=== PATIENT | female | born 1995 | race Two or more races ===

== ENCOUNTER 2021-02-02 08:35 | Observation (INO) | payer MEDICAID, OTHER | END 2021-02-02 10:52 | disposition home or self-care (01) | LOC: LDRP 08:35 | PROVIDERS: ADMIT Specialist; ATTEND Specialist | DX: O48.0 Post-term pregnancy (principal); Z3A.40 40 weeks gestation of pregnancy | CPT/HCPCS: 59025; 76818; 81002; G0378 ==

== ENCOUNTER 2021-02-04 10:50 | Observation (INO) | payer MEDICAID | END 2021-02-04 11:55 | disposition home or self-care (01) | LOC: LDRP 10:50 | PROVIDERS: ADMIT Obstetrics & Gynecology; ATTEND Obstetrics & Gynecology | DX: O48.0 Post-term pregnancy (principal); O60.03 Preterm labor without delivery, third trimester; Z3A.40 40 weeks gestation of pregnancy; Z91.040 Latex allergy status; Z79.899 Other long term (current) drug therapy | CPT/HCPCS: 59025; 76818; 81002; G0378 ==

== ENCOUNTER 2021-02-06 15:02 | Observation (INO) | payer MEDICAID ==
[~2021-02-06] VITALS: Ht 157.5 cm; Wt 67.1 kg
== END 2021-02-06 17:04 | disposition home or self-care (01) ==
LOC: LDRP 15:02
PROVIDERS: ADMIT Obstetrics & Gynecology; ATTEND Obstetrics & Gynecology
DX: O48.0 Post-term pregnancy (principal); O62.9 Abnormality of forces of labor, unspecified; Z3A.40 40 weeks gestation of pregnancy; Z91.040 Latex allergy status
CPT/HCPCS: 59025; 76818; 81002; 94760; G0378

== ENCOUNTER 2021-02-07 19:35 | Observation (INO) | payer MEDICAID ==
[~2021-02-07] VITALS: Ht 160 cm; Wt 66.7 kg
== END 2021-02-07 22:18 | disposition home or self-care (01) ==
LOC: LDRP 19:35
PROVIDERS: ADMIT Obstetrics & Gynecology; ATTEND Obstetrics & Gynecology
DX: O46.93 Antepartum hemorrhage, unspecified, third trimester (principal); Z3A.40 40 weeks gestation of pregnancy; Z91.040 Latex allergy status
CPT/HCPCS: 59025; 76818; 81002; G0378

== ENCOUNTER 2021-02-09 20:02 | Observation (INO) | payer MEDICAID ==
[~2021-02-09] VITALS: Ht 160 cm; Wt 66.7 kg
== END 2021-02-10 01:45 | disposition home or self-care (01) ==
LOC: LDRP 20:02
PROVIDERS: ADMIT Specialist; ATTEND Specialist
DX: O24.419 Gestational diabetes mellitus in pregnancy, unspecified control (principal); O62.9 Abnormality of forces of labor, unspecified; Z91.040 Latex allergy status; Z3A.41 41 weeks gestation of pregnancy
CPT/HCPCS: 59025; 76818; 81002; 94760; G0378

== ENCOUNTER 2021-02-10 19:43 | Inpatient (IN) | payer MEDICAID ==
[~2021-02-10] VITALS: Ht 33 cm; Wt 0.5 kg
[2021-02-10] MEDS ORDERED: PROMETHAZINE HCL 25 MG/ML 1ML IM PRN (21:15)
[2021-02-10] MEDS ORDERED: DERMOPLAST 60ML BOTTLE TOP PRN (21:15)
[2021-02-10] MEDS ORDERED: LIDOCAINE 2%HCL (LOCAL ANESTH.) INJ 20ML MDV IJ PRN (21:15)
[2021-02-10] MEDS ORDERED: PHISODERM TOP SOLN 240ML BTL TOP PRN (21:15)
[2021-02-10] MEDS ORDERED: BUTORPHANOL TARTRATE 2 MG/1 ML VIAL IV PRN (21:15)
[2021-02-10] MEDS ORDERED: LACT. RINGERS/OXYTOCIN 20UNITS 500 ML IV ONE ×2 (21:30→22:00)
[2021-02-10] MEDS ORDERED: LACT. RINGERS/OXYTOCIN 20UNITS 1,000 ML IV SCH (21:30)
[2021-02-10] MEDS ORDERED: TERBUTALINE SULFATE 1 MG/ML 1ML VIAL SC ONE (21:30)
[2021-02-10] MEDS: miSOPROStol 50 MCG per PRE-CUT 1/2 TAB PO PRN (21:58)
[2021-02-10] MEDS: LACTATED RINGER'S 1,000 ML IV SCH (22:07)
[2021-02-10 22:17] LABS: Basophils # (auto) 0.1 10 ^3/uL (0-0.2); Basophils % (auto) 0.9 % (0.0-2.0); Eosinophils # (auto) 0.1 10 ^3/uL (0-0.8); Eosinophils % (auto) 0.7 % (0.0-7.0); Hematocrit 37.8 % (36.0-46.0); Hemoglobin 13.2 g/dL (12.2-16.2); Lymphocytes # (auto) 1.7 10 ^3/uL (0.4-5.4); Lymphocytes % (auto) 15.4 % (10.0-50.0); Mean Corpuscular Hemoglobin 32.9 pg (28.0-32.0); Mean Corpuscular Hgb Conc. 34.8 g/dL (32.0-36.0); Mean Corpuscular Volume 94.4 fL (80.0-100.0); Monocytes # (auto) 0.7 10 ^3/uL (0-1.3); Monocytes % (auto) 6.5 % (0.0-12.0); Neutrophils # (auto) 8.3 10 ^3/uL (1.6-8.6); Neutrophils % (auto) 76.5 % (37.0-80.0); Red Cell Distribution Width 13.4 % (11.8-14.3); White Blood Cell 10.8 10^3/uL (4.4-10.8)
[2021-02-10 22:43] LABS: Urine Bacteria NONE SEEN /hpf (None Seen); Urine Blood Negative /uL (Negative); Urine Mucus FEW (None Seen); Urine Specific Gravity 1.025 (1.001-1.035); Urine WBC 16 /hpf (0 - 5)
[2021-02-10 22:50] LABS: Albumin 2.8 g/dL (3.4-5.0); Calcium 8.6 mg/dL (8.5-10.1); Potassium 3.9 mmol/L (3.5-5.1)
[2021-02-10 22:51] LABS: Alcohol, Urine < 3.0 mg/dL (0-10); Amphetamine Screen, Urine NEGATIVE (NEGATIVE); Barbiturate Scree,Urine NEGATIVE (NEGATIVE); Benzodiazephine Screen, Urine NEGATIVE (NEGATIVE); Cannabinoid Screen, Urine NEGATIVE (NEGATIVE); Cocaine Screen, Urine NEGATIVE (NEGATIVE); Opiate Scree,Urine NEGATIVE (NEGATIVE); Phencyclidine Screen, Urine NEGATIVE (NEGATIVE)
[2021-02-10 22:53] LABS: Bilirubin, Total 0.4 mg/dL (0.2-1.0); Total Protein 6.7 g/dL (6.4-8.2)
[2021-02-10 22:56] LABS: INR 0.95 (0.9-1.15); Partial Thromboplastin Time 27.5 sec (23.0-31.2)
[2021-02-11] VITALS (10 sets, daily range): BP systolic 112–132; BP diastolic 49–73
[2021-02-11] MEDS ORDERED: AMPICILLIN SOD 1 GM VL ONE (00:04)
[2021-02-11] MEDS: BUTORPHANOL TARTRATE 2 MG/1 ML VIAL IV PRN ×2 (02:37→08:01)
[2021-02-11] MEDS ORDERED: PROMETHAZINE HCL 25 MG/ML 1ML IV PRN ×2 (04:30→05:15)
[2021-02-11] MEDS: WITCH HAZEL-GLYCERIN PAD TOP PRN (04:59)
[2021-02-11] MEDS: miSOPROStol 50 MCG per PRE-CUT 1/2 TAB PO PRN (08:07)
[2021-02-11] MEDS ORDERED: NALOXONE HCL 0.4 MG/ML VIAL IV ONE (09:15)
[2021-02-11] MEDS ORDERED: ePHEDrine SULFATE 50 MG/ML AMP IV ONE (09:15)
[2021-02-11] MEDS ORDERED: LACTATED RINGER'S 1,000 ML IV ONE (09:15)
[2021-02-11] MEDS ORDERED: ROPIVACAINE HCL 200 ML EPI SCH (09:15)
[2021-02-11] MEDS ORDERED: LIDOCAINE HCL 2 %PF INJ 10ML AMP IJ ONE (09:15)
[2021-02-11] MEDS ORDERED: fentaNYL CITRATE 100 MCG/2 ML VL IV ONE (09:15)
[2021-02-11] MEDS: LACTATED RINGER'S 1,000 ML IV SCH ×2 (09:28→11:34)
[2021-02-11] MEDS ORDERED: fentaNYL CITRATE 100 MCG/2 ML VL ONE ×2 (09:57→20:21)
[2021-02-11] MEDS ORDERED: CARBOPROST TROMETHAMINE 250 MCG/1ML VIAL IM ONE (15:30)
[2021-02-11] MEDS ORDERED: METHYLERGONOVINE MALEATE 0.2 MG/ML AMP IM PRN (15:30)
[2021-02-11] MEDS ORDERED: miSOPROStol 100 mcg TAB SL ONE (15:30)
[2021-02-11] MEDS ORDERED: miSOPROStol 100 mcg TAB PR ONE (15:30)
[2021-02-11] MEDS ORDERED: LACT. RINGERS/OXYTOCIN 20UNITS 0 ML IV ONE (18:58)
[2021-02-11] MEDS ORDERED: SODIUM CITR/CITRIC ACID ORAL SOLN 30 ML ONE (19:15)
[2021-02-11] MEDS ORDERED: BUPIVACAINE 0.5% P/F INJ 10 ML VIAL ONE (19:19)
[2021-02-11] MEDS ORDERED: ceFAZolin 1GM/50ML 50 ML IV ONE (19:52)
[2021-02-11] MEDS ORDERED: MORPHINE SULF(PF) 0.5MG/ML 10ML VIAL ONE (20:18)
[2021-02-11] MEDS ORDERED: MIDAZOLAM HCL 1MG/1ML-2 ML VIAL ONE (20:26)
[2021-02-11] MEDS ORDERED: GUM (CHEWING) 1 GUM CHEW CHEW ONE (21:00)
[2021-02-11] MEDS ORDERED: ONDANSETRON HCL 4 MG/2 ML VIAL IV PRN ×2 (21:00→21:15)
[2021-02-11] MEDS ORDERED: ceFAZolin 1GM/50ML 50 ML IV SCH (21:00)
[2021-02-11] MEDS ORDERED: ACETAMINOPHEN IV 1000 MG/100ML (10MG/ML) IV PRN ×2 (21:00→22:45)
[2021-02-11] MEDS ORDERED: HYDROmorphone HCL 2 MG/ML VL IV PRN ×2 (21:00→21:15)
[2021-02-11] MEDS ORDERED: diphenhdrAMINE HCL 50 MG/1 ML VL IV PRN (21:15)
[2021-02-11] MEDS ORDERED: NALOXONE HCL 0.4 MG/ML VIAL IV PRN (21:15)
[2021-02-11] MEDS ORDERED: NALBUPHINE HCL 10 MG/1ml INJECTION SUBCUT ONE (21:15)
[2021-02-11] MEDS ORDERED: DexAMETHasone SOD PHOS 10MG/1ML VIAL INJ IV PRN (21:15)
[2021-02-11] MEDS ORDERED: SODIUM CITR/CITRIC ACID ORAL SOLN 30 ML PO ONE (21:46)
[2021-02-12] VITALS (23 sets, daily range): BP systolic 105–130; BP diastolic 53–79
[2021-02-12] MEDS: LACTATED RINGER'S 1,000 ML IV SCH ×3 (04:05→14:09)
[2021-02-12] MEDS: ceFAZolin 1GM/50ML 50 ML IV SCH ×3 (04:06→21:59)
[2021-02-12 06:06] LABS: RPR Non Reactive (Non Reactive)
[2021-02-12 07:24] LABS: Basophils # (auto) 0.1 10 ^3/uL (0-0.2); Basophils % (auto) 0.3 % (0.0-2.0); Eosinophils # (auto) 0 10 ^3/uL (0-0.8); Eosinophils % (auto) 0.1 % (0.0-7.0); Hematocrit 30.9 % (36.0-46.0); Hemoglobin 10.9 g/dL (12.2-16.2); Lymphocytes # (auto) 1.9 10 ^3/uL (0.4-5.4); Lymphocytes % (auto) 10.7 % (10.0-50.0); Mean Corpuscular Hemoglobin 33.5 pg (28.0-32.0); Mean Corpuscular Hgb Conc. 35.1 g/dL (32.0-36.0); Mean Corpuscular Volume 95.2 fL (80.0-100.0); Monocytes % (auto) 5.9 % (0.0-12.0); Neutrophils # (auto) 14.6 10 ^3/uL (1.6-8.6); Red Blood Cells 3.25 10^6/uL (4.0-5.20); Red Cell Distribution Width 13.2 % (11.8-14.3); White Blood Cell 17.7 10^3/uL (4.4-10.8)
[2021-02-12] MEDS ORDERED: LACTATED RINGER'S 1,000 ML IV SCH (19:45)
[2021-02-12] MEDS ORDERED: HYDROcodone-ACET 5/325MG TAB PO PRN (19:45)
[2021-02-12] MEDS ORDERED: BISACODYL 10 MG RECT SUPP PR PRN (19:45)
[2021-02-12] MEDS ORDERED: IBUPROFEN 800 MG TAB PO PRN (19:45)
[2021-02-12] MEDS: HYDROcodone-ACET 5/325MG TAB PO PRN (20:01)
[2021-02-12] MEDS ORDERED: ACETAMINOPHEN 325 MG TAB PO PRN (21:20)
[2021-02-12] MEDS: SIMETHICONE 80 MG CHEWABLE TABLET PO SCH (22:00)
[2021-02-12] MEDS: DOCUSATE SOD 100 MG CAP PO SCH (22:00)
[2021-02-13 04:03] VITALS: BP 107/61
[2021-02-13] MEDS: SIMETHICONE 80 MG CHEWABLE TABLET PO SCH ×4 (05:35→23:02)
[2021-02-13 07:00] VITALS: BP 115/62
[2021-02-13] MEDS: DOCUSATE CALCIUM 240 MG CAP PO SCH (09:33)
[2021-02-13] MEDS: DOCUSATE SOD 100 MG CAP PO SCH ×2 (09:33→23:02)
[2021-02-13 11:00] VITALS: BP 109/62
[2021-02-13 15:00] VITALS: BP 112/63
[2021-02-13] MEDS: WITCH HAZEL-GLYCERIN PAD TOP PRN (15:09)
[2021-02-13] MEDS: HYDROcodone-ACET 5/325MG TAB PO PRN ×2 (17:05→23:01)
[2021-02-13 19:00] VITALS: BP 124/74
[2021-02-13 23:15] VITALS: BP 122/68
[2021-02-14 03:30] VITALS: BP 124/72
[2021-02-14] MEDS: SIMETHICONE 80 MG CHEWABLE TABLET PO SCH (05:52)
[2021-02-14 06:30] VITALS: BP 108/61
[2021-02-14] MEDS ORDERED: HYDR-4902 PO (09:10)
[2021-02-14] MEDS: DOCUSATE SOD 100 MG CAP PO SCH (10:03)
[2021-02-14] MEDS: DOCUSATE CALCIUM 240 MG CAP PO SCH (10:03)
[2021-02-14 10:54] VITALS: BP 118/74
== END 2021-02-14 13:30 | disposition home or self-care (01) | DRG 540 ==
LOC: LDRP 19:43
PROVIDERS: ADMIT Specialist; ATTEND Specialist
PROC: 3E0P7VZ Introduction of Hormone into Female Reproductive, Via Natural or Artificial Opening (ICD-10-PCS; 2021-02-10)
PROC: 10D00Z1 Extraction of Products of Conception, Low, Open Approach (ICD-10-PCS; principal; 2021-02-11 19:36)
DX: O48.0 Post-term pregnancy (principal); R71.0 Precipitous drop in hematocrit; O66.5 Attempted application of vacuum extractor and forceps; O69.81X0 Labor and delivery complicated by cord around neck, without compression, not applicable or unspecified; O66.9 Obstructed labor, unspecified; Z20.822 Contact with and (suspected) exposure to COVID-19; Z37.0 Single live birth; Z3A.41 41 weeks gestation of pregnancy
CPT/HCPCS: 36415; 59025; 80053; 80307; 81001; 85025; 85049; 85610; 85730; 86592; 86850; 86900; 86901; 87426; 94760; 94762; 96360; 96361; 96365; 96366; 96372; 96374; 96375; G0378; J0131; J0690; J2250; J2590; J3490

== ENCOUNTER 2024-03-09 04:49 | Inpatient (IN) | payer MEDICAID ==
[2024-03-08 11:28] LABS: Basophils # (auto) 0 10 ^3/uL (0-0.2); Basophils % (auto) 0.2 % (0.0-2.0); Eosinophils # (auto) 0.1 10 ^3/uL (0-0.8); Eosinophils % (auto) 0.6 % (0.0-7.0); Hemoglobin 10.2 g/dL (12.2-16.2); Lymphocytes # (auto) 1.9 10 ^3/uL (0.4-5.4); Lymphocytes % (auto) 23.6 % (10.0-50.0); Mean Corpuscular Hemoglobin 27.3 pg (28.0-32.0); Mean Corpuscular Hgb Conc. 33.1 g/dL (32.0-36.0); Mean Corpuscular Volume 82.6 fL (80.0-100.0); Monocytes # (auto) 0.5 10 ^3/uL (0-1.3); Neutrophils # (auto) 5.5 10 ^3/uL (1.6-8.6); Neutrophils % (auto) 69.6 % (37.0-80.0); Red Blood Cells 3.75 10^6/uL (4.0-5.20); Red Cell Distribution Width 15.1 % (11.8-14.3); White Blood Cell 7.9 10^3/uL (4.4-10.8)
[2024-03-08 11:37] LABS: Urine Bacteria FEW /hpf (None Seen); Urine Blood Negative /uL (Negative); Urine Clarity Turbid (Clear); Urine Color Yellow (Yellow); Urine Mucus FEW (None Seen); Urine Protein, UAD TRACE (Negative); Urine Specific Gravity 1.024 (1.001-1.035); Urine Urobilinogen Normal (Negative); Urine WBC 18 /hpf (0 - 5); Urine pH 5.5 (5.0-9.0)
[2024-03-08 11:43] LABS: Alanine Aminotransferase 12 U/L (7-40); Alkaline Phosphatase 178 U/L (46-116); Anion Gap 10 (5-15); Calcium 9.3 mg/dL (8.7-10.4); Carbon Dioxide 22 mmol/L (20-30); Chloride 105 mmol/L (98-107); Glucose 69 mg/dL (74-106); Potassium 3.8 mmol/L (3.5-5.1); Sodium 137 mmol/L (136-145)
[2024-03-08 11:44] LABS: Albumin 3.9 g/dL (3.2-4.8); Aspartate Aminotransferase 22 U/L (13-40); BUN/Creatinine Ratio 12.2 (10.0-20.0); Bilirubin, Total 0.8 mg/dL (0.2-1.0); Blood Urea Nitrogen 5 mg/dL (9-23); Total Protein 6.5 g/dL (5.7-8.2)
[2024-03-08 11:46] LABS: Partial Thromboplastin Time 27.2 SEC (24.5-34.5); Prothrombin Time 10.6 sec (9.3-11.8)
[2024-03-08 11:48] LABS: Amphetamine Screen, Urine Neg (NEGATIVE); Barbiturate Scree,Urine Neg (NEGATIVE); Benzodiazephine Screen, Urine Neg (NEGATIVE); Cocaine Screen, Urine Neg (NEGATIVE)
[2024-03-08 11:49] LABS: Cannabinoid Screen, Urine Neg (NEGATIVE); Opiate Scree,Urine Neg (NEGATIVE); Phencyclidine Screen, Urine Neg (NEGATIVE)
[~2024-03-09] VITALS: Ht 167.6 cm; Wt 59.4 kg
[2024-03-09] VITALS (17 sets, daily range): BP systolic 98–134; BP diastolic 55–76; PULSE 57–96; RESP 16–18; TEMP 97.8–99.3; O2SAT 93–99
[2024-03-09] MEDS ORDERED: oxyTOCIN 10 UNIT/ML 10ML VIAL ONE (06:57)
[2024-03-09] MEDS ORDERED: MORPHINE SULF PF 5 MG/10 ML VIAL ONE (06:57)
[2024-03-09 07:06] LABS: RPR Non Reactive (Non Reactive)
[2024-03-09] MEDS: ceFAZolin 2 GM/D5W50ml 50 ML IV ONE (07:38)
[2024-03-09] MEDS ORDERED: ePHEDrine SULFATE 50 MG/ML AMP ONE (07:56)
[2024-03-09] MEDS ORDERED: ONDANSETRON HCL 4 MG/2 ML VIAL ONE (08:02)
[2024-03-09] MEDS ORDERED: HYDROmorphone HCL 2 MG/ML VL/or syr IV PRN ×2 (09:00)
[2024-03-09] MEDS ORDERED: ONDANSETRON HCL 4 MG/2 ML VIAL IV PRN ×2 (09:00)
[2024-03-09] MEDS ORDERED: MEPERIDINE HCL (25 MG/ML) 1ML VIAL IV PRN (09:00)
[2024-03-09] MEDS ORDERED: NALOXONE HCL 0.4 MG/ML VIAL IV PRN (09:00)
[2024-03-09] MEDS ORDERED: DexAMETHasone SOD PHOS 10MG/1ML VIAL INJ IV PRN (09:00)
[2024-03-09] MEDS: diphenhdrAMINE HCL 50 MG/1 ML VL IV PRN (11:19)
[2024-03-09] MEDS: ACETAMINOPHEN IV 1000 MG/100ML (10MG/ML) IV PRN (11:20)
[2024-03-09] MEDS: ceFAZolin 1GM/50ML 50 ML IV SCH (15:33)
[2024-03-09] MEDS: LACTATED RINGER'S 1,000 ML IV SCH (15:40)
[2024-03-09 15:48] LABS: Basophils # (auto) 0 10 ^3/uL (0-0.2); Basophils % (auto) 0.1 % (0.0-2.0); Eosinophils # (auto) 0 10 ^3/uL (0-0.8); Eosinophils % (auto) 0.1 % (0.0-7.0); Hemoglobin 8.5 g/dL (12.2-16.2); Mean Corpuscular Hemoglobin 26.4 pg (28.0-32.0); Neutrophils # (auto) 13.1 10 ^3/uL (1.6-8.6)
[2024-03-09 15:50] LABS: Hematocrit 26.6 % (36.0-46.0); Lymphocytes # (auto) 1.5 10 ^3/uL (0.4-5.4); Lymphocytes % (auto) 9.9 % (10.0-50.0); Mean Corpuscular Hgb Conc. 32.1 g/dL (32.0-36.0); Mean Corpuscular Volume 82.2 fL (80.0-100.0); Monocytes # (auto) 0.8 10 ^3/uL (0-1.3); Monocytes % (auto) 5.1 % (0.0-12.0); Neutrophils % (auto) 84.8 % (37.0-80.0); Red Blood Cells 3.23 10^6/uL (4.0-5.20); Red Cell Distribution Width 14.8 % (11.8-14.3); White Blood Cell 15.4 10^3/uL (4.4-10.8)
[2024-03-09] MEDS: FERROUS SULFATE 325mg EC TAB PO SCH (22:53)
[2024-03-10] VITALS (13 sets, daily range): BP systolic 108–133; BP diastolic 56–90; PULSE 79–100; RESP 16–20; TEMP 98.5–99.1; O2SAT 95–100
[2024-03-10] MEDS: HYDROmorphone HCL 2 MG/ML VL/or syr IV PRN (00:38)
[2024-03-10] MEDS: ONDANSETRON HCL 4 MG/2 ML VIAL IV ONE (06:31)
[2024-03-10] MEDS: NALBUPHINE HCL 10 MG/1ml INJECTION SUBCUT ONE (06:32)
[2024-03-10] MEDS: LACTATED RINGER'S 1,000 ML IV ONE (06:33)
[2024-03-10] MEDS: HYDROcodone-ACET 5/325MG TAB PO PRN (07:29)
[2024-03-10] MEDS ORDERED: HYDROcodone-ACET 5/325MG TAB PO PRN (07:30)
[2024-03-10] MEDS: DOCUSATE CALCIUM 240 MG CAP PO SCH (10:00)
[2024-03-10] MEDS: DOCUSATE SOD 100 MG CAP PO SCH (10:25)
[2024-03-10] MEDS: SIMETHICONE 80 MG CHEWABLE TABLET PO SCH (11:44)
[2024-03-10] MEDS ORDERED: HYDR-4902 PO (12:19)
[2024-03-10] MEDS ORDERED: IBUP-1455 PO (12:19)
[2024-03-10] MEDS: HYDROcodone-ACET 10/325MG TAB PO PRN (19:05)
[2024-03-11 03:00] VITALS: BP 133/84; PULSE 88; RESP 16; TEMP 99.1; O2SAT 96
[2024-03-11 07:09] VITALS: BP 113/77; PULSE 80; RESP 17; TEMP 98.9; O2SAT 97
[2024-03-11 10:41] VITALS: BP 116/78; PULSE 79; RESP 16; TEMP 98.3; O2SAT 97
== END 2024-03-11 11:25 | disposition home or self-care (01) | DRG 540 ==
LOC: LDRP 04:49
PROVIDERS: ADMIT Obstetrics & Gynecology; ATTEND Obstetrics & Gynecology
PROC: 10D00Z1 Extraction of Products of Conception, Low, Open Approach (ICD-10-PCS; principal; 2024-03-09 07:42)
DX: O34.211 Maternal care for low transverse scar from previous cesarean delivery (principal); D62 Acute posthemorrhagic anemia; O99.02 Anemia complicating childbirth; Z37.0 Single live birth; Z3A.39 39 weeks gestation of pregnancy
CPT/HCPCS: 36415; 59025; 80053; 80307; 81001; 85025; 85610; 85730; 86592; 86803; 86850; 86900; 86901; 94760; 94762; 96360; 96361; 96374; 96375; G0378; J0131; J2405; J2590